=== PATIENT | male | born 1955 | race Caucasian/White ===

== ENCOUNTER 2016-10-19 05:42 | Emergency (ER) | payer OTHER ==
[~2016-10-19] VITALS: Ht 182.9 cm; Wt 172.4 kg
[2016-10-19 05:58] VITALS: BP 145/93
[2016-10-19] MEDS ORDERED: IPRATROPIUM BROM 0.5 MG/2.5ML INH SOL NEB ONE (06:15)
[2016-10-19] MEDS ORDERED: ALBUTEROL SULF 2.5 MG/0.5ML(0.5%) NEB SOLN NEB ONE (06:15)
[2016-10-19] MEDS ORDERED: methylPREDNISolone SOD SUCC 125 MG/2 ML VL IV ONE (06:15)
[2016-10-19 06:24] LABS: Basophils # (auto) 0 uL; Basophils % (auto) 0.1 % (0.0-2.0); Eosinophils # (auto) 0.2 uL; Eosinophils % (auto) 1.5 % (0.0-7.0); Hematocrit 30.7 % (41.0-53.0); Hemoglobin 9.7 g/dL (13.5-17.5); Lymphocytes # (auto) 1.2 uL; Lymphocytes % (auto) 10.9 % (10.0-50.0); Mean Corpuscular Hemoglobin 27.5 pg (28.0-32.0); Mean Corpuscular Hgb Conc. 31.5 g/dL (32.0-36.0); Mean Corpuscular Volume 87.2 fL (80.0-100.0); Mean Platelet Volume 8.5 fL (7.4-10.4); Monocytes # (auto) 1.1 uL; Monocytes % (auto) 10.9 % (0.0-12.0); Neutrophils # (auto) 8.1 uL; Neutrophils % (auto) 76.6 % (37.0-80.0); Platelet Count (auto) 171 10^3/uL (140-450); Red Cell Distribution Width 16.9 % (11.6-16.0); White Blood Cell 10.5 10^3/uL (4.4-10.8)
[2016-10-19 06:39] LABS: INR 1.18 (0.9-1.15); Partial Thromboplastin Time 21.4 sec (22.64-33.71); Prothrombin Time 12.2 sec (9.37-12.3)
[2016-10-19] MEDS ORDERED: NITR0.4S29 SL (07:00)
[2016-10-19] MEDS ORDERED: TERA10CA36 PO (07:00)
[2016-10-19] MEDS ORDERED: ISO60SRT PO (07:00)
[2016-10-19] MEDS ORDERED: ALBUAER3 IN (07:00)
[2016-10-19] MEDS ORDERED: CLOP75TA28 PO (07:00)
[2016-10-19] MEDS ORDERED: ALLO300T2 PO (07:00)
[2016-10-19] MEDS ORDERED: RANO500T PO (07:00)
[2016-10-19] MEDS ORDERED: GABA300C8 PO (07:00)
[2016-10-19] MEDS ORDERED: CEPH500C PO (07:00)
[2016-10-19] MEDS ORDERED: ATO40T PO (07:00)
[2016-10-19] MEDS ORDERED: INSU70IN3 SC (07:00)
[2016-10-19] MEDS ORDERED: METO5TAB56 PO (07:00)
[2016-10-19] MEDS ORDERED: PRED1PAK7 PO (07:00)
[2016-10-19] MEDS ORDERED: FURO40TA4 PO (07:00)
[2016-10-19] MEDS ORDERED: PRED1PAK8 PO (07:00)
[2016-10-19] MEDS ORDERED: CARV6.2551 PO (07:00)
[2016-10-19] MEDS ORDERED: SEVE800T8 PO (07:00)
[2016-10-19] MEDS ORDERED: HYD2T PO (07:00)
[2016-10-19 07:23] LABS: BUN/Creatinine Ratio 9.7; Potassium 4.8 mmol/L (3.5-5.1)
[2016-10-19 07:24] LABS: Bilirubin, Total 0.4 mg/dL (0.2-1.0); Calcium 8.4 mg/dL (8.5-10.1)
[2016-10-19 07:25] LABS: Albumin 3.1 g/dL (3.4-5.0); Magnesium 2.2 mg/dL (1.6-2.6)
[2016-10-19 08:03] LABS: Urine Bilirubin Negative (Negative); Urine Blood Negative /uL (Negative); Urine Color Yellow (Yellow); Urine Glucose Normal (Normal); Urine Ketone Negative (Negative); Urine Nitrite Negative (Negative); Urine RBC 1 /hpf (0 - 3); Urine Squamous Epithelial Cell FEW /hpf (<5); Urine Urobilinogen Normal (Negative)
[2016-10-19 08:31] VITALS: BP 110/66
[2016-10-19] MEDS ORDERED: cefTRIAXone 1GM/50ML D5W 50 ML IV ONE (09:15)
[2016-10-19] MEDS ORDERED: AZITHROMYCIN 500MG/D5W 250ML 250 ML IV ONE (09:15)
[2016-10-19 10:00] VITALS: BP 113/56
[2016-10-19] MEDS ORDERED: LORazepam 2MG/ML-1ML VIAL IV ONE (11:00)
[2016-10-19 12:15] VITALS: BP 106/43
== END 2016-10-19 12:14 | disposition short-term general hospital (02) ==
LOC: EDBD 05:42 → ER 05:45
DX: J96.20 Acute and chronic respiratory failure, unspecified whether with hypoxia or hypercapnia (principal); I25.10 Atherosclerotic heart disease of native coronary artery without angina pectoris; E11.22 Type 2 diabetes mellitus with diabetic chronic kidney disease; N18.6 End stage renal disease; I12.0 Hypertensive chronic kidney disease with stage 5 chronic kidney disease or end stage renal disease; Z99.2 Dependence on renal dialysis; Z98.61 Coronary angioplasty status; J44.9 Chronic obstructive pulmonary disease, unspecified; E66.01 Morbid (severe) obesity due to excess calories; Z68.43 Body mass index [BMI] 50.0-59.9, adult; M10.9 Gout, unspecified
CPT/HCPCS: 36415; 36600; 71010; 80053; 81001; 82805; 82962; 83735; 84484; 85025; 85610; 85730; 93005; 94644; 96365; 96366; 96367; 96375; 99285; J0456; J0696; J2060; J2930